=== PATIENT | male | born 1975 | race Two or more races ===

== ENCOUNTER → 2019-02-03 | Outpatient (CLI) | payer OTHER ==
[2019-02-03 13:47] LABS: ABSOLUTE BASOPHILS # (AUTO) 0.1 10^3/uL (0.0-0.2); ABSOLUTE EOSINOPHILS # (AUTO) 0.2 10^3/uL (0.0-0.6); ABSOLUTE LYMPHOCYTES (AUTO) 1.7 10^3/uL (0.5-4.7); ABSOLUTE MONOCYTES (AUTO) 0.3 10^3/uL (0.1-1.4); ABSOLUTE NEUT (AUTO) 5.2 10^3/uL (1.7-8.2); BASOPHILS % (AUTO) 0.7 % (0-2); EOSINOPHILS % (AUTO) 2.4 % (0-6); HEMATOCRIT 42.1 % (37.9-51.0); HEMOGLOBIN 14.6 g/dL (13.5-17.0); LYMPHOCYTES % (AUTO) 22.8 % (13-45); MEAN CORPUSCULAR HEMOGLOBIN 30.7 pg (27.0-33.4); MEAN CORPUSCULAR HGB CONC 34.6 g/dL (32.0-36.0); MEAN CORPUSCULAR VOLUME 89 fl (80-97); MONOCYTES % (AUTO) 4.4 % (3-13); PLATELET COUNT 232 10^3/uL (150-450); RED BLOOD COUNT 4.74 10^6/uL (4.35-5.55); RED CELL DISTRIBUTION WIDTH 14.5 % (11.5-14.0); SEGMENTED NEUTROPHILS % (AUTO) 69.7 % (42-78); TOTAL CELLS COUNTED % (AUTO) 100 %; WHITE BLOOD COUNT 7.4 10^3/uL (4.0-10.5)
[2019-02-03 14:15] LABS: ALANINE AMINOTRANSFERASE 43 U/L (21-72); ALBUMIN 4.3 g/dL (3.5-5.0); ALKALINE PHOSPHATASE 100 U/L (38-126); ANION GAP 11 (5-19); ASPARTATE AMINO TRANSFERASE 24 U/L (17-59); BILIRUBIN,DIRECT 0.4 mg/dL (0.0-0.4); BILIRUBIN,TOTAL 1.6 mg/dL (0.2-1.3); BLOOD UREA NITROGEN 12 mg/dL (7-20); CALCIUM 9.9 mg/dL (8.4-10.2); CARBON DIOXIDE 30 mmol/L (22-30); CHLORIDE 101 mmol/L (98-107); GLUCOSE 121 mg/dL (75-110); POTASSIUM 4.3 mmol/L (3.6-5.0); SODIUM 141.5 mmol/L (137-145); TOTAL PROTEIN 7.5 g/dL (6.3-8.2)
== END ==
LOC: OD 12:19
PROVIDERS: ATTEND Orthopaedic Surgery Hand Surgery
DX: Z11.2 Encounter for screening for other bacterial diseases (principal); I10 Essential (primary) hypertension
CPT/HCPCS: 36415; 80053; 85025; 87070

== ENCOUNTER → 2019-03-18 | Outpatient (CLI) | payer OTHER ==
[2019-03-18 13:48] LABS: ABSOLUTE BASOPHILS # (AUTO) 0.1 10^3/uL (0.0-0.2); ABSOLUTE EOSINOPHILS # (AUTO) 0.1 10^3/uL (0.0-0.6); ABSOLUTE LYMPHOCYTES (AUTO) 2.5 10^3/uL (0.5-4.7); ABSOLUTE MONOCYTES (AUTO) 0.6 10^3/uL (0.1-1.4); ABSOLUTE NEUT (AUTO) 4.3 10^3/uL (1.7-8.2); BASOPHILS % (AUTO) 0.9 % (0-2); EOSINOPHILS % (AUTO) 1.6 % (0-6); HEMATOCRIT 43.5 % (37.9-51.0); HEMOGLOBIN 14.9 g/dL (13.5-17.0); MEAN CORPUSCULAR HEMOGLOBIN 30.1 pg (27.0-33.4); MEAN CORPUSCULAR HGB CONC 34.3 g/dL (32.0-36.0); MEAN CORPUSCULAR VOLUME 88 fl (80-97); MONOCYTES % (AUTO) 8.1 % (3-13); PLATELET COUNT 228 10^3/uL (150-450); RED BLOOD COUNT 4.95 10^6/uL (4.35-5.55); RED CELL DISTRIBUTION WIDTH 14.3 % (11.5-14.0); SEGMENTED NEUTROPHILS % (AUTO) 56.4 % (42-78); TOTAL CELLS COUNTED % (AUTO) 100 %; WHITE BLOOD COUNT 7.7 10^3/uL (4.0-10.5)
[2019-03-18 14:28] LABS: ALANINE AMINOTRANSFERASE 51 U/L (21-72); ALBUMIN 4.5 g/dL (3.5-5.0); ALKALINE PHOSPHATASE 97 U/L (38-126); ANION GAP 13 (5-19); ASPARTATE AMINO TRANSFERASE 27 U/L (17-59); BILIRUBIN,DIRECT 0.3 mg/dL (0.0-0.4); BILIRUBIN,TOTAL 1.3 mg/dL (0.2-1.3); BLOOD UREA NITROGEN 9 mg/dL (7-20); CALCIUM 9.8 mg/dL (8.4-10.2); CARBON DIOXIDE 30 mmol/L (22-30); CHLORIDE 101 mmol/L (98-107); GLUCOSE 99 mg/dL (75-110); POTASSIUM 4.4 mmol/L (3.6-5.0); SODIUM 143.8 mmol/L (137-145); TOTAL PROTEIN 7.5 g/dL (6.3-8.2)
== END ==
LOC: OD 13:26
PROVIDERS: ATTEND Physician Assistant
DX: Z11.2 Encounter for screening for other bacterial diseases (principal); I10 Essential (primary) hypertension
CPT/HCPCS: 36415; 80053; 85025

== ENCOUNTER 2019-08-08 15:21 | Emergency (ER) | payer OTHER ==
[2019-08-08] MEDS ORDERED: CYCLOBENZAPRINE HCL 10 MG TABLET PO ONE (15:59)
--- NOTE | 2019-08-08 15:59 | ER Document Report ---
ED Medical Screen (RME) - General Chief Complaint: Back Pain Stated Complaint: BACK PAIN Time Seen by Provider: 08/08/19 15:53 Primary Care Provider: JOSIAS BANKS PA-C [Primary Care Provider] - Follow up as needed Notes: 44-year-old male presented to ED for exacerbation of his long-term chronic back pain. He states that since 10:00 in the morning yesterday till today when his got home he is not been able to get up out of the bed due to the pain. He states he took his oxycodone last night that he had leftover from his surgery and Aleve yesterday at 10:30. He states he was in the shower got stiff and has been laying in the bed since then due to the pain. She is alert and oriented respirations regular nonlabored he is walking with his neighbors walker. He denies any loss of control of bowel bladder, saddle anesthesia, or loss of control of sensation to his lower extremities. I have greeted and performed a rapid initial assessment of this patient. A comprehensive ED assessment and evaluation of the patient, analysis of test results and completion of medical decision making process will be conducted by an additional ED providers. TRAVEL OUTSIDE OF THE [place] IN LAST 30 DAYS: No Physical Exam - Vital signs Vitals: Temp Pulse Resp BP Pulse Ox 97.9 F 77 18 142/88 H 98 08/08/19 15:35 08/08/19 15:35 08/08/19 15:35 08/08/19 15:35 08/08/19 15:35 Course - Vital Signs Vital signs: Temp Pulse Resp BP Pulse Ox 97.9 F 77 18 142/88 H 98 08/08/19 15:35 08/08/19 15:35 08/08/19 15:35 08/08/19 15:35 08/08/19 15:35 Doctor's Discharge - Discharge Referrals: JOSIAS BANKS PA-C [Primary Care Provider] - Follow up as needed
--- NOTE | 2019-08-08 16:19 | ER Document Report ---
HPI - HPI Patient complains to provider of: back pain Time Seen by Provider: 08/08/19 15:53 Onset: Yesterday Onset/Duration: Sudden Quality of pain: Achy Severity: Severe Pain Level: 5 Context: This 44-year-old male presents emergency department with complaints of low back pain that started yesterday when he was getting out of the shower. He reports all of a sudden his back started hurting. Denies trauma. Denies fever vomiting diarrhea. Denies urinary bowel incontinence or retention. Denies paresthesia. Denies IV drug use denies steroid use. Reports last bowel movement was today without any problems. Reports he has had back pain for the past 10 to 12 years. Reports his kids had a rolling over in bed yesterday. He has been using his TENS unit without relief of the symptoms. Patient is using a walker he borrowed from his neighbor to walk. Patient reports [facility] but has not seen them in probably a year for back pain. Associated Symptoms: None Exacerbated by: Movement, Walking, Other - Sitting to standing to sitting Relieved by: Denies Similar symptoms previously: Yes Recently seen / treated by doctor: No - REPRODUCTIVE Reproductive: DENIES: : Past Medical History - General Information source: Patient - Social History Smoking Status: Never Smoker Chew tobacco use (# tins/day): Yes Frequency of alcohol use: None Drug Abuse: None Lives with: Family Family History: None Patient has suicidal ideation: No Patient has homicidal ideation: No - Past Medical History Cardiac Medical History: Reports: Hx Hypercholesterolemia Psychiatric Medical History: Reports: Hx Depression, Hx Post Traumatic Stress Disorder Traumatic Medical History: Reports: Hx Traumatic Brain Injury Past Surgical History: Reports: Hx Orthopedic Surgery Vertical Provider Document - CONSTITUTIONAL Agree With Documented VS: Yes Exam Limitations: No Limitations General Appearance: WD/WN, Moderate Distress - winces when standing up - INFECTION CONTROL TRAVEL OUTSIDE OF THE [place] IN LAST 30 DAYS: No - HEENT HEENT: Atraumatic, Normocephalic - NECK Neck: Normal Inspection, Supple. negative: Lymphadenopathy-Left, Lymphadenopathy-Right - RESPIRATORY Respiratory: No Respiratory Distress - CARDIOVASCULAR Cardiovascular: Regular Rate - GI/ABDOMEN Gastrointestinal: Abdomen Soft, Abdomen Non-Tender - BACK Back: Normal Inspection - No obvious deformity no erythema no swelling no warmth good distal movement and sensation. Patient has complaints of severe tenderness to the low back no complaints of radiation down his legs. - MUSCULOSKELETAL/EXTREMETIES Musculoskeletal/Extremeties: STACEY CARIE - NEURO Level of Consciousness: Awake, Alert, Appropriate Motor/Sensory: No Motor Deficit - DERM Integumentary: Warm, Dry Adult Front & Back Diagram: 1 - Reports severe low back pain. Course - Re-evaluation Re-evalutation: 08/08/19 16:59 This 44-year-old male presents emergency department with complaints of low back pain that started yesterday when he was getting out of the shower. He reports all of a sudden his back started hurting. Denies trauma. Denies fever vomiting diarrhea. Denies urinary bowel incontinence or retention. Denies paresthesia. Reports last bowel movement was today without any problems. Reports he has had back pain for the past 10 to 12 years. Received Toradol when he was in the without any problems. Patient received a muscle relaxer by the provider in [facility]. He reports that he may have helped a little bit. We will treat him with Toradol now in an attempt to relieve some relief of his pain. Patient reports he really does not like narcotics or anything that makes him feel loopy. 08/08/19 18:59 Patient received very little relief with the Toradol. We will discharge him with a prescription for Toradol Flexeril and [place] [facility] dispense back. Patient was given a copy of his CT report. He was instructed on the importance of follow-up with [facility] for [facility]. He was also instructed on the red flags of back pain and to return immediately for all those symptoms. Patient verbalized understanding to all instructions. His is there with him and she verbalized understanding. Low suspicion for any meningitis, fracture, expanding/ruptured AAA, cauda equina syndrome, epidural mass lesion/abscess, herniated disc causing severe spinal stenosis, or other systemic infection at this time. Patient is aware that this condition can change from initial presentation and that she needs monitor symptoms closely for any acute changes. Lumbar Spine CT 08/08/19 17:04 IMPRESSION: Mild multilevel spondylotic changes with mild osseous encroachment of the right L4/5 neural foramen. - Vital Signs Vital signs: Temp Pulse Resp BP Pulse Ox 97.9 F 77 18 142/88 H 98 08/08/19 15:35 08/08/19 15:35 08/08/19 15:35 08/08/19 15:35 08/08/19 15:35 - Diagnostic Test Radiology reviewed: Image reviewed, Reports reviewed Discharge - Discharge Clinical Impression: Exacerbation of chronic back pain Condition: Stable Disposition: HOME, SELF-CARE Instructions: Ice Packs ([facility]), Low Back Pain ([facility]), Muscle Relaxers ([facility]), Oral Narcotic Medication ([facility]), Toradol Injection ([facility]) Additional Instructions: *You have been evaluated for back pain *Take medication as prescribed- take muscle relaxer as prescribed, take toradol as prescribed, take norco for acute pain not controlled by toradol *Rest/Ice packs as indicated *[facility] up with [facility] Saturday for referral to orthopedics and MRI as indicated *Return to ED for worsening condition, changes, needs Monitor your blood pressure. Your blood pressure was elevated today. This may be because you were anxious, in pain or because you need medication. It is important to follow up with your primary care provider for full evaluation. Prescriptions: Ketorolac Tromethamine [Toradol 10 mg Tablet] 10 mg PO Q6HP PRN #15 tablet PRN Reason: Cyclobenzaprine HCl [Flexeril 10 Mg Tablet] 10 mg PO TID #15 tablet Forms: Elevated Blood Pressure Referrals: JOSIAS BANKS PA-C [NO LOCAL MD] - 08/10/19
[2019-08-08] MEDS ORDERED: KETOROLAC TROMETHAMINE 60 MG/2 ML SDV IM ONE (16:58)
--- NOTE | 2019-08-08 18:19 | RADIOLOGY REPORT (SQ) ---
EXAM DESCRIPTION: CT LUMBAR SPINE WITHOUT COMPLETED DATE/TIME: 08/08/2019 5:58 pm REASON FOR STUDY: sever pain COMPARISON: None. TECHNIQUE: Axial images acquired through the lumbar spine without intravenous contrast. Images revi ewed with lung, soft tissue and bone windows. Reconstructed coronal and sagittal MPR images reviewed . All images stored on PACS. All CT scanners at this facility use dose modulation, iterative reconstruction, and/or weight based d osing when appropriate to reduce radiation dose to as low as reasonably achievable (ALARA). [facility]: Dose Right [facility]: CareDose [facility]: Dose Right [facility]: Teradose 4D [facility]: Daixe RADIATION DOSE: mGy. LIMITATIONS: None. FINDINGS: SEGMENTATION: Normal. No transitional anatomy. ALIGNMENT: Normal. VERTEBRAL BODIES: No fractures. No dislocation. No acute findings. Small marginal osteophytes are seen at several levels. DISCS: Mild loss of intervertebral disc height is seen at all levels. No significant protrusions. S tudy limited by lack of intrathecal contrast. PEDICLES, TRANSVERSE PROCESSES: No fractures. No dislocation. No acute findings. FACETS, POSTERIOR ELEMENTS: No fractures. No dislocation. Mild osseous encroachment is seen of the right L4/5 neural foramen. HARDWARE: None in the spine. VISUALIZED RIBS: No fractures. SOFT TISSUES: No significant or acute finding in adjacent soft tissues. OTHER: Degenerative changes are seen of the sacroiliac joints. IMPRESSION: Mild multilevel spondylotic changes with mild osseous encroachment of the right L4/5 jose ral foramen. TECHNICAL DOCUMENTATION: JOB ID: [id number] Quality ID # [id number]: Final reports with documentation of one or more dose reduction techniques (e.g., Au tomated exposure control, adjustment of the mA and/or kV according to patient size, use of iterative reconstruction technique) 2010 [employer]- All Rights Reserved Reading location - IP/workstation name: [email or web address]
[2019-08-08] MEDS ORDERED: HYDROCODONE/ACETAMINOPHEN 5-325 MG (6 TAB/ER DISP) PO PRN (18:35)
[2019-08-08 18:51] VITALS: BP 117/66
== END 2019-08-08 18:50 | disposition home or self-care (01) ==
LOC: ER 15:21
DX: M54.5 Low back pain (principal); G89.29 Other chronic pain; F17.290 Nicotine dependence, other tobacco product, uncomplicated
CPT/HCPCS: 99283; 96372; 72131; J1885